=== PATIENT | female | born 1985 | race African-American/Black ===

== ENCOUNTER 2017-05-24 18:18 | Emergency (ER) | payer SELFPAY ==
[~2017-05-24 18:18] MED LIST: FIORIC PO; ONDA1TAB16 PO; [UNRECOGNIZED DRUG - CODE] PO
[2017-05-24 18:22] VITALS: BP 140/71; PULSE 97; RESP 20; TEMP 98.5; O2SAT 100
[2017-05-24] MEDS ORDERED: TETANUS/DIPHTHERIA TOXOID ADULT 0.5 ML VIAL IM ONE (19:00)
--- NOTE | 2017-05-24 19:14 | RADRPT ---
EXAM DATE/TIME: 05/24/2017 18:50 [facility] COMPARISON: No previous studies available for comparison. INDICATIONS : Left foot pain 3rd digit. MEDICAL HISTORY : None. SURGICAL HISTORY : None. ENCOUNTER: Initial ACUITY: 1 day PAIN SCORE: 10/10 LOCATION: Left Whole third digit. FINDINGS: There is a mildly displaced fracture through the proximal portion proximal phalanx third toe. No disl ocation. No other fractures are seen. CONCLUSION: 1. Mildly displaced fracture proximal phalanx third toe. Mono Saab MD on May 24, 2017 at 19:12 Board Certified Radiologist. This report was verified electronically.
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
--- NOTE | 2017-05-24 20:38 | RADRPT ---
EXAM DATE/TIME: 05/24/2017 20:06 [facility] COMPARISON: No previous studies available for comparison. INDICATIONS : Left knee pain today. MEDICAL HISTORY : None. SURGICAL HISTORY : None. ENCOUNTER: Initial ACUITY: 1 day PAIN SCORE: 10/10 LOCATION: Left top of knee FINDINGS: Four view examination of the left knee demonstrates no evidence of fracture or dislocation. Bony min eralization is normal. The articular surfaces are intact. The suprapatellar soft tissues have a nor mal configuration. CONCLUSION: Unremarkable examination of the left knee. Mono Saab MD on May 24, 2017 at 20:34 Board Certified Radiologist. This report was verified electronically.
[2017-05-24] MEDS ORDERED: IBUPROFEN 600 MG TAB PO ONE (21:00)
[2017-05-24] MEDS ORDERED: TRAM50TA PO (21:44)
== END 2017-05-24 21:45 | disposition home or self-care (01) ==
LOC: PHEFT 18:18
DX: R52 Pain, unspecified (principal); S80.212A Abrasion, left knee, initial encounter; S80.211A Abrasion, right knee, initial encounter; Z23 Encounter for immunization; Y33.XXXA Other specified events, undetermined intent, initial encounter
CPT/HCPCS: 73564; 73660; 90471; 90714